=== PATIENT | male | born 1965 | race African-American/Black ===

== ENCOUNTER 2019-05-14 09:55 | Day surgery (SDC) | payer OTHER ==
[2019-05-13 16:35] VITALS: BMI 37.3
[2019-05-14 11:22] VITALS: TEMP 98.7
[2019-05-14 12:02] VITALS: BP 150/80; PULSE 60
== END 2019-05-14 12:03 | disposition home or self-care (01) ==
LOC: JASU-ENDO 09:55
PROVIDERS: ATTEND Internal Medicine Gastroenterology
PROC: 0DJD8ZZ Inspection of Lower Intestinal Tract, Via Natural or Artificial Opening Endoscopic (ICD-10-PCS; principal; 2019-05-14 11:00)
DX: Z12.11 Encounter for screening for malignant neoplasm of colon (principal); K57.30 Diverticulosis of large intestine without perforation or abscess without bleeding; K64.8 Other hemorrhoids